=== PATIENT | female | born 1990 | race Caucasian/White ===

== ENCOUNTER 2019-12-27 18:39 | Emergency (ER) | payer SELFPAY ==
--- NOTE | 2019-12-27 18:54 | ED.PDOC ---
History of Present Illness - General Time Seen by Provider: 12/27/19 18:51 Source: patient, RN notes reviewed, Vital Signs reviewed Additional Information: 29-year-old female, with of asthma, patient presents to the ER because of cough and congestion, patient called the clinic yesterday without an x-ray she was put on Rocephin and Zithromax, they did swab her for the covid virus, and prescribe her an inhaler, patient presents able to speak in complete sentences with a steady gait does not be in any distress she is concerned because she has had issues when her asthma seems to develop into a pneumonia, she is not a smoker Symptoms began about 5 days ago History of rheumatoid arthritis, pulmonayr hypertension, History of congenital heart defect - History of Present Illness Timing/Duration: other - 5 days Cough Quality/Degree: no cough Possible Cause: occasional episodes Improving Factors: nothing Worsening Factors: nothing Associated Symptoms: shortness of breath Allergies/Adverse Reactions: Allergies Povidone Iodine [From Betadine] Allergy (Verified 08/20/14 14:39) Home Medications: Ambulatory Orders Esomeprazole Magnesium [Nexium] 40 mg PO DAILY 08/20/14 Vit W/ Ferrous Fumara [] 1 tab PO DAILY 08/20/14 Levalbuterol Tartrate [Xopenex Hfa] 45 mcg IN PRN PRN 11/12/14 Albuterol Sulfate Nebs [Proventil Nebs] 2.5 mg INH Q4HR #1 vial 12/27/19 Benzonatate Perles [Tessalon Perles] 100 mg PO TID #15 cap 12/27/19 Methylprednisolone [Medrol Dose Marty] 4 mg PO DAILY 6 Days #21 tab 12/27/19 Review of Systems - Review of Systems Constitutional: States: no symptoms reported EENTM: States: no symptoms reported Respiratory: States: cough, short of breath Cardiology: States: no symptoms reported Gastrointestinal/Abdominal: States: no symptoms reported Genitourinary: States: no symptoms reported Musculoskeletal: States: no symptoms reported Skin: States: no symptoms reported Neurological: States: no symptoms reported Endocrine: States: no symptoms reported Hematologic/Lymphatic: States: no symptoms reported Past Medical History (General) - Patient Medical History Hx Asthma: Yes Hx of COPD: No Hx Cardiac Disorders: Yes - 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3 Hx Pacemaker: Yes Hx Hypertension: No Hx Diabetes: No Hx Renal Disease: No - Social History Hx Alcohol Use: No Hx Substance Use: No Hx Physical Abuse: No Hx Emotional Abuse: No - Female History Hx Last Menstrual Period: 02/07/14 Expected Date of Delivery:: 11/14/14 Family Medical History - Family History Mother Family History: No Known Name: Stephanie Graves Age (years): 56 Living Status: Still Living Hx Family Asthma: No Hx Family Congestive Heart Failure: No Hx Family Hypertension: No Hx Family Stroke: No Hx Cardiac Disease: No Hx Family Diabetes: No Hx Family Cancer: No Hx Family;Other: no significant family history per pt. Sister Family History: No Known Name: Dav Multani Age (years): 25 Living Status: Still Living Physical Exam - Physical Exam General Appearance: Well Developed, Well Groomed, Well Hydrated, Well Nourished Eye Exam: bilateral normal ENT Exam: normal ENT inspection, hearing grossly normal, TMs normal Neck: non-tender, full range of motion, supple, normal inspection Respiratory: chest non-tender, lungs clear, normal breath sounds, no respiratory distress, no accessory muscle use Cardiovascular/Chest: normal peripheral pulses, regular rate, rhythm, no edema, no gallop, no JVD, no murmur Gastrointestinal/Abdominal: normal bowel sounds, non tender, soft, no organomegaly, no pulsatile mass Extremity: normal range of motion, non-tender, normal inspection, no pedal edema, no calf tenderness 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 Patient is pending the results she arrived in the ER because she still having some cough and she was concerned chest x-ray I did see some congestion but no clear infiltrates, patient is awake alert in no distress does not appear to have any respiratory difficulties, will be discharged home with Tessalon Perles, steroids and albuterol via inhaler Suggested to stop taking antibiotics given the fact that there is no evidence of pneumonia on x-ray 12/27/19 19:11 Departure - Departure Clinical Impression: Cough Upper respiratory infection Qualifiers: URI type: unspecified viral URI Qualified Code(s): J06.9 - Acute upper respiratory infection, unspecified Disposition: Discharge to Home or Self Care Condition: Fair Instructions: Viral Upper Respiratory Infection, Adult (DC) Diet: resume usual diet Referrals: Aris Polanco MD [Primary Care Provider] - 1-2 Weeks Prescriptions: Albuterol Sulfate Nebs [Proventil Nebs] 2.5 mg INH Q4HR #1 vial Benzonatate Perles [Tessalon Perles] 100 mg PO TID #15 cap Methylprednisolone [Medrol Dose Marty] 4 mg PO DAILY 6 Days #21 tab Home Medications: Ambulatory Orders Esomeprazole Magnesium [Nexium] 40 mg PO DAILY 08/20/14 Vit W/ Ferrous Fumara [] 1 tab PO DAILY 08/20/14 Levalbuterol Tartrate [Xopenex Hfa] 45 mcg IN PRN PRN 11/12/14 Albuterol Sulfate Nebs [Proventil Nebs] 2.5 mg INH Q4HR #1 vial 12/27/19 Benzonatate Perles [Tessalon Perles] 100 mg PO TID #15 cap 12/27/19 Methylprednisolone [Medrol Dose Marty] 4 mg PO DAILY 6 Days #21 tab 12/27/19 Additional Instructions: Return to the ER immediately with any chest pain shortness of breath unable to speak in long complete sentences due to shortness of breath increased work of breathing fatigue or shortness of breath even with minimal exertion excessive sweating high fever after mental status any other concerns
[2019-12-27 19:02] VITALS: TEMP 98.1; O2SAT 98
--- NOTE | 2019-12-27 19:14 | RAD ---
Exam(s): XR CHEST 1 VIEW: 12/27/2019 6:51 PM CDT Indication: cough MAIN Comparison Study Date: 08/23/2009 Technique: AP chest radiograph. Findings: The lungs are clear. No airspace abnormality is identified. No pleural effusion or pneumothorax. Heart size is normal. Patient is status post median sternotomy. No change in mediastinal contours compared to prior exam. No acute bone abnormality is identified. IMPRESSION: The lungs are clear. No acute abnormality is identified. Electronically signed by: Hossein Smith MD 12/27/2019 7:12 PM CDT
[2019-12-27 19:17] VITALS: BP 113/74
== END 2019-12-27 19:17 | disposition home or self-care (01) ==
LOC: ER 18:39
DX: J06.9 Acute upper respiratory infection, unspecified (principal); J45.909 Unspecified asthma, uncomplicated; Z95.0 Presence of cardiac pacemaker